=== PATIENT | male | born 1940 | race Caucasian/White ===

== ENCOUNTER → 2017-01-18 | Outpatient (CLI) | payer MEDICARE, OTHER ==
[~2017-01-18] MED LIST: ASPIR 8181 MG PO; CATAPRES 0.1MG0.1 MG PO; HYDRALAZINE HCL25 MG PO; ISOSORBIDE MONO20 MG PO; LANTUS SOL100 UNIT/1 SQ; LASIX20 MG PO; LOSARTAN POTAS100 MG PO; NITROSTAT 0.40.4 MG SL; NORVASC 5 MG TAB5 MG PO; OMEPRAZOLE20 M1 PO; PLAQUENIL 200200 MG PO; PLAVIX 75 MG TA75 MG PO; SERTRALINE HCL100 MG PO; SYNTHROID150 MCG PO; TOPROL XL25 MG PO; TRENTAL 400 MG400 MG PO
== END ==
LOC: HEART 5 08:13
DX: I25.119 Atherosclerotic heart disease of native coronary artery with unspecified angina pectoris (principal); I50.42 Chronic combined systolic (congestive) and diastolic (congestive) heart failure; I51.9 Heart disease, unspecified; I08.3 Combined rheumatic disorders of mitral, aortic and tricuspid valves; I27.2 Other secondary pulmonary hypertension
CPT/HCPCS: 78452; 93306; A9502; J2785